=== PATIENT | male | born 1990 | race Caucasian/White ===

== ENCOUNTER 2022-09-14 15:38 | Emergency (ER) | payer MEDICAID ==
[~2022-09-14] VITALS: Ht 182.9 cm; Wt 83.0 kg
[2022-09-14] MEDS ORDERED: TRAZ-252 PO (15:48)
[2022-09-14] MEDS ORDERED: DIVA-85 PO (15:48)
[2022-09-14] MEDS ORDERED: BENZ0.5T49 PO (15:48)
[2022-09-14 17:28] VITALS: BP 137/61
[2022-09-14 17:47] LABS: COVID AG,FIA SOURCE NASAL SWAB
[2022-09-14 18:06] LABS: INFLUENZA TYPE B NEGATIVE FOR TYPE B (NEGATIVE)
[2022-09-14 18:27] LABS: INFLUENZA TYPE A POSITIVE FOR TYPE A (NEGATIVE)
[2022-09-14] MEDS ORDERED: ACETAMINOPHEN 500 MG TABLET PO ONE (18:45)
== END 2022-09-14 19:08 | disposition home or self-care (01) ==
LOC: EMS 15:45
DX: J10.1 Influenza due to other identified influenza virus with other respiratory manifestations (principal); F17.210 Nicotine dependence, cigarettes, uncomplicated; F31.9 Bipolar disorder, unspecified; I50.9 Heart failure, unspecified; F20.9 Schizophrenia, unspecified; C80.1 Malignant (primary) neoplasm, unspecified; F43.10 Post-traumatic stress disorder, unspecified; Z91.030 Bee allergy status; Z20.822 Contact with and (suspected) exposure to COVID-19
CPT/HCPCS: 87804; 99283

== ENCOUNTER 2022-09-24 11:00 | Inpatient (IN) | payer MEDICAID ==
[~2022-09-24] VITALS: Ht 182.9 cm; Wt 89.0 kg
[~2022-09-24 11:00] MED LIST: BENZ0.5T49 PO; DIVA-85 PO; TRAZ-252 PO
[2022-09-24] MEDS ORDERED: SERT-158 PO (12:09)
[2022-09-24] MEDS ORDERED: OLAN7.5T22 PO (12:09)
[2022-09-24] MEDS ORDERED: BENZ1TAB96 PO (12:09)
[2022-09-24] MEDS ORDERED: LEVE500T20 PO (12:09)
[2022-09-24 12:35] LABS: BASOPHILS % (AUTO) 0.2 % (0.0-2.0); HEMOGLOBIN 13.3 g/dL (13.5-17.5); LYMPHOCYTES # (AUTO) 2.1 K/uL (1.0-4.8); LYMPHOCYTES % (AUTO) 26.6 % (22.0-44.0); MEAN CORPUSCULAR HEMOGLOBIN 31.7 pg (26.0-34.0); MEAN CORPUSCULAR VOLUME 90 fL (80-100); MONOCYTES # (AUTO) 0.8 K/uL (0.1-1.0); MONOCYTES % (AUTO) 10.7 % (2.0-9.0); NEUTROPHILS # (AUTO) 4.9 K/uL (1.8-7.7); NEUTROPHILS % (AUTO) 61.5 % (40.0-70.0); PLATELET COUNT (AUTO) 391 K/uL (150-450); RED CELL DISTRIBUTION WIDTH 13.4 % (11.5-14.5)
[2022-09-24 12:52] LABS: ANION GAP 6 mmol/L (8-16); CALCIUM, TOTAL 8.9 mg/dL (8.8-10.5); CARBON DIOXIDE 29 mmol/L (22-29); CHLORIDE 101 mmol/L (98-107); CREATININE 0.71 mg/dL (0.60-1.30); GLUCOSE,RANDOM 95 mg/dL (70-110); POTASSIUM 3.5 mmol/L (3.5-5.1); SODIUM SERUM 136 mmol/L (136-145); UREA NITROGEN, BLOOD 14 mg/dL (7-18)
[2022-09-24 12:53] LABS: GLOMERULAR FILTR. RATE CALC > 60 mL/min (>60)
[2022-09-24 13:02] LABS: ACETAMINOPHEN < 2 mcg/mL (10-30); ALANINE AMINOTRANSFERASE 28 U/L (12-78); ALBUMIN 3.9 g/dL (3.4-5.0); ALKALINE PHOSPHATASE 82 U/L (46-116); ASPARTATE AMINOTRANSFERASE 26 U/L (15-37); BILIRUBIN,TOTAL 0.6 mg/dL (0.1-1.0)
[2022-09-24 14:38] LABS: SALICYLATE < 0.2 mg/dL (2.8-20.0)
[2022-09-24 14:45] LABS: VALPROIC ACID < 3 mcg/mL (50-100)
[2022-09-24] MEDS ORDERED: DIVA-80 PO (16:28)
[2022-09-24] MEDS ORDERED: TRAZ150T80 PO (16:28)
[2022-09-24] MEDS ORDERED: MAGNESIUM HYDROXIDE SUSPENSION 30 ML UDCUP PO PRN (16:30)
[2022-09-24] MEDS ORDERED: ONDANSETRON HCL 4 MG/2 ML VIAL IVP PRN (16:30)
[2022-09-24] MEDS ORDERED: LORazepam 2 MG/ML VIAL IVP PRN (16:30)
[2022-09-24] MEDS ORDERED: SODIUM CHLORIDE 0.9% 1,000 ML IV ONE (16:30)
[2022-09-24 16:40] LABS: COVID AG,FIA SOURCE NASAL SWAB
[2022-09-24 16:47] LABS: APPEARANCE,URINE CLEAR (CLEAR); BILIRUBIN,URINE NEGATIVE (NEGATIVE); GLUCOSE, URINE (UA) NEGATIVE (NEGATIVE); KETONES,URINE NEGATIVE (NEGATIVE); LEUKOCYTE ESTERASE ,URINE NEGATIVE (NEGATIVE); NITRATE,URINE NEGATIVE (NEGATIVE); OCCULT BLOOD,URINE NEGATIVE (NEGATIVE); PROTEIN,URINE NEGATIVE (NEGATIVE); SPECIFIC GRAVITIY, URINE 1.018 (1.003-1.030); UROBILINOGEN,URINE <=1.0 mg/dL (<=1.0)
[2022-09-24] MEDS: PANTOPRAZOLE SODIUM 40 MG DR TABLET PO SCH (17:16)
[2022-09-24 17:17] LABS: AMPHET/METH SCREEN,URINE POSITIVE (NEGATIVE); BARBITURATE SCREEN, URINE NEGATIVE (NEGATIVE); BENZODIAZEPINES SCREEN,URINE NEGATIVE (NEGATIVE); CANNABINOID SCREEN,URINE NEGATIVE (NEGATIVE); COCAINE SCREEN,URINE NEGATIVE (NEGATIVE); METHADONE SCREEN, URINE NEGATIVE (NEGATIVE); OPIATE SCREEN,URINE NEGATIVE (NEGATIVE)
[2022-09-24 17:21] LABS: PHENCYCLIDINE SCREEN,URINE NEGATIVE (NEGATIVE)
[2022-09-24 20:56] VITALS: BP 119/87
[2022-09-24] MEDS: ACETAMINOPHEN 325 MG TABLET PO PRN (21:11)
[2022-09-24 23:30] VITALS: BP 126/76
[2022-09-25] VITALS (7 sets, daily range): BP systolic 98–109; BP diastolic 58–65
[2022-09-25 07:47] LABS: ALANINE AMINOTRANSFERASE 23 U/L (12-78); ALBUMIN 3.2 g/dL (3.4-5.0); ALKALINE PHOSPHATASE 68 U/L (46-116); ANION GAP 4 mmol/L (8-16); ASPARTATE AMINOTRANSFERASE 17 U/L (15-37); BILIRUBIN,TOTAL 0.7 mg/dL (0.1-1.0); CALCIUM, TOTAL 8.5 mg/dL (8.8-10.5); CARBON DIOXIDE 29 mmol/L (22-29); CHLORIDE 105 mmol/L (98-107); CREATININE 0.79 mg/dL (0.60-1.30); GLUCOSE,RANDOM 71 mg/dL (70-110); POTASSIUM 3.9 mmol/L (3.5-5.1); SODIUM SERUM 138 mmol/L (136-145); TOTAL PROTEIN, SERUM 6.7 g/dL (6.4-8.2); UREA NITROGEN, BLOOD 6 mg/dL (7-18)
[2022-09-25 07:56] LABS: GLOMERULAR FILTR. RATE CALC > 60 mL/min (>60); VALPROIC ACID < 3 mcg/mL (50-100)
[2022-09-25] MEDS: PANTOPRAZOLE SODIUM 40 MG DR TABLET PO SCH (08:47)
[2022-09-26 04:07] VITALS: BP 108/62
[2022-09-26 04:49] VITALS: BP 105/61
[2022-09-26 08:10] VITALS: BP 112/65
[2022-09-26] MEDS: PANTOPRAZOLE SODIUM 40 MG DR TABLET PO SCH (08:58)
[2022-09-26 12:00] VITALS: BP 105/62
[2022-09-26 16:15] VITALS: BP 109/63
[2022-09-26 20:16] VITALS: BP 96/53
[2022-09-26] MEDS ORDERED: TAMSULOSIN HCL 0.4 MG CAPSULE PO SCH (21:00)
[2022-09-27] MEDS: ACETAMINOPHEN 325 MG TABLET PO PRN (05:33)
[2022-09-27 05:35] VITALS: BP 97/62
[2022-09-27] MEDS: PANTOPRAZOLE SODIUM 40 MG DR TABLET PO SCH (10:50)
[2022-09-27 12:34] LABS: COVID AG,FIA SOURCE NASAL SWAB
== END 2022-09-27 14:40 | DRG 817 ==
LOC: EMS 11:05 → 5N 18:42 → 5S 09-25 21:05 → 6N 09-26 23:03
PROVIDERS: ADMIT Internal Medicine; ATTEND Internal Medicine
DX: T43.212A Poisoning by selective serotonin and norepinephrine reuptake inhibitors, intentional self-harm, initial encounter (principal); R45.851 Suicidal ideations; I50.9 Heart failure, unspecified; F17.210 Nicotine dependence, cigarettes, uncomplicated; F20.9 Schizophrenia, unspecified; Z20.822 Contact with and (suspected) exposure to COVID-19; F31.9 Bipolar disorder, unspecified; F43.10 Post-traumatic stress disorder, unspecified; Z88.8 Allergy status to other drugs, medicaments and biological substances; Z91.030 Bee allergy status; Z85.028 Personal history of other malignant neoplasm of stomach; Y92.89 Other specified places as the place of occurrence of the external cause
CPT/HCPCS: 80053; 80164; 80307; 81003; 82140; 83735; 85025; 93005; 99285; G0378; G0480; G0481; J7030

== ENCOUNTER 2022-09-27 10:45 | Inpatient (IN) | payer MEDICAID ==
[~2022-09-27] VITALS: Ht 182.9 cm; Wt 85.5 kg
[~2022-09-27 10:45] MED LIST changes: -BENZ0.5T49 PO; +BENZ1TAB96 PO; -DIVA-85 PO; +DIVA500T53 PO; +LEVE500T20 PO; +OLAN7.5T22 PO; +SERT-158 PO; -TRAZ-252 PO; +TRAZ150T80 PO
[2022-09-27] MEDS: LORazepam 2 MG TABLET PO PRN (15:52)
[2022-09-27] MEDS ORDERED: NICOTINE 7 MG/24 HOUR PATCH TD PRN (17:15)
[2022-09-27] MEDS ORDERED: PNEUMOCOCCAL VACCINE POLYVALENT 0.5 ML VIAL [PPSV23] IM. ONE (17:30)
[2022-09-27] MEDS ORDERED: INFLUENZA VIRUS VACCINE QVS 2022-23 (6MO+)/PF 60 MCG/0.5 ML SYRINGE IM. ONE (17:30)
[2022-09-27] MEDS: LevETIRAcetam 500 MG TABLET PO SCH (18:00)
[2022-09-27 20:48] VITALS: BP 112/71
[2022-09-27] MEDS: ZOLPIDEM TARTRATE 10 MG TABLET PO PRN (20:55)
[2022-09-28] MEDS: QUEtiapine FUMARATE 100 MG TABLET PO PRN ×2 (04:26→16:02)
[2022-09-28] MEDS: LevETIRAcetam 500 MG TABLET PO SCH ×2 (08:18→16:59)
[2022-09-28 08:37] VITALS: BP 96/55
[2022-09-28] MEDS ORDERED: TAMSULOSIN HCL 0.4 MG CAPSULE PO SCH ×2 (09:00)
[2022-09-28] MEDS: SERTRALINE HCL 50 MG TABLET PO SCH (11:59)
[2022-09-28 12:00] VITALS: BP 112/69
[2022-09-28] MEDS: DIVALPROEX SODIUM 500 MG ER TABLET PO SCH (16:59)
[2022-09-28] MEDS ORDERED: CloNIDine HCL 0.1 MG TABLET PO PRN (19:30)
[2022-09-28] MEDS ORDERED: DOCUSATE SODIUM 100 MG CAPSULE PO PRN (19:30)
[2022-09-28] MEDS ORDERED: MAGNESIUM HYDROXIDE SUSPENSION 30 ML UDCUP PO PRN (19:30)
[2022-09-28] MEDS ORDERED: PETROLATUM,WHITE 28 GM JELLY TP PRN (19:30)
[2022-09-28] MEDS ORDERED: ALBUTEROL SULFATE HFA 90 MCG/PUFF 8 GM INHALER IH PRN (19:30)
[2022-09-28] MEDS ORDERED: GuaiFENesin/D-METHORPHAN [SUGAR-FREE] 200-20MG/10 ML SYRUP UDCUP PO PRN (19:30)
[2022-09-28] MEDS ORDERED: MAG HYDROX/AL HYDROX/SIMETH ES 30 ML SUSPENSION UDCUP PO PRN (19:30)
[2022-09-28] MEDS ORDERED: ONDANSETRON HCL 4 MG TABLET PO PRN (19:30)
[2022-09-28] MEDS ORDERED: LOPERAMIDE HCL 2 MG CAPSULE PO PRN (19:30)
[2022-09-28] MEDS: OLANZapine 7.5 MG TABLET PO SCH (20:06)
[2022-09-28] MEDS: TAMSULOSIN HCL 0.4 MG CAPSULE PO SCH (20:07)
[2022-09-28 20:19] VITALS: BP 111/73
[2022-09-28] MEDS: ZOLPIDEM TARTRATE 10 MG TABLET PO PRN (21:02)
[2022-09-29] MEDS: LevETIRAcetam 500 MG TABLET PO SCH ×2 (08:30→16:30)
[2022-09-29] MEDS: SERTRALINE HCL 50 MG TABLET PO SCH (08:30)
[2022-09-29] MEDS: DIVALPROEX SODIUM 500 MG ER TABLET PO SCH ×2 (08:30→16:31)
[2022-09-29 08:36] VITALS: BP 125/70
[2022-09-29 20:05] VITALS: BP 110/63
[2022-09-29] MEDS: TAMSULOSIN HCL 0.4 MG CAPSULE PO SCH (20:21)
[2022-09-29] MEDS: OLANZapine 7.5 MG TABLET PO SCH (20:21)
[2022-09-29] MEDS: ZOLPIDEM TARTRATE 10 MG TABLET PO PRN (20:28)
[2022-09-30 08:32] VITALS: BP 120/70
[2022-09-30] MEDS: SERTRALINE HCL 50 MG TABLET PO SCH (10:24)
[2022-09-30] MEDS: LevETIRAcetam 500 MG TABLET PO SCH ×2 (10:24→16:54)
[2022-09-30] MEDS: DIVALPROEX SODIUM 500 MG ER TABLET PO SCH ×2 (10:24→16:54)
[2022-09-30] MEDS: QUEtiapine FUMARATE 100 MG TABLET PO PRN (14:19)
[2022-09-30] MEDS: LORazepam 2 MG TABLET PO PRN (14:19)
[2022-09-30] MEDS: NICOTINE 14 MG/24 HOUR PATCH TD PRN (14:37)
[2022-09-30 18:18] VITALS: BP 119/77
[2022-09-30] MEDS: IBUPROFEN 400 MG TABLET PO PRN (18:21)
[2022-09-30 20:14] VITALS: BP 121/72
[2022-09-30] MEDS: TAMSULOSIN HCL 0.4 MG CAPSULE PO SCH (20:27)
[2022-09-30] MEDS: OLANZapine 7.5 MG TABLET PO SCH (20:28)
[2022-09-30] MEDS: ZOLPIDEM TARTRATE 10 MG TABLET PO PRN (20:52)
[2022-10-01 08:21] VITALS: BP 119/60
[2022-10-01] MEDS: DIVALPROEX SODIUM 500 MG ER TABLET PO SCH ×2 (08:26→17:16)
[2022-10-01] MEDS: LevETIRAcetam 500 MG TABLET PO SCH ×2 (08:26→17:16)
[2022-10-01] MEDS: SERTRALINE HCL 50 MG TABLET PO SCH (08:26)
[2022-10-01] MEDS: QUEtiapine FUMARATE 100 MG TABLET PO PRN ×2 (09:16→16:16)
[2022-10-01] MEDS: LORazepam 2 MG TABLET PO PRN ×2 (09:16→16:16)
[2022-10-01 11:07] LABS: HEPATITIS C AB (EIA) <0.1 s/co ratio (0.0-0.9)
[2022-10-01] MEDS: ACETAMINOPHEN 325 MG TABLET PO PRN (13:16)
[2022-10-01] MEDS: NICOTINE 14 MG/24 HOUR PATCH TD PRN (19:09)
[2022-10-01 20:17] VITALS: BP 117/68
[2022-10-01] MEDS: TAMSULOSIN HCL 0.4 MG CAPSULE PO SCH (20:40)
[2022-10-01] MEDS: OLANZapine 7.5 MG TABLET PO SCH (20:40)
[2022-10-01] MEDS: ZOLPIDEM TARTRATE 10 MG TABLET PO PRN (20:52)
[2022-10-02 00:52] VITALS: BP 105/74
[2022-10-02] MEDS: QUEtiapine FUMARATE 100 MG TABLET PO PRN ×3 (01:01→16:08)
[2022-10-02 08:23] VITALS: BP 110/61
[2022-10-02] MEDS: DIVALPROEX SODIUM 500 MG ER TABLET PO SCH ×2 (08:54→16:44)
[2022-10-02] MEDS: LevETIRAcetam 500 MG TABLET PO SCH ×2 (08:54→16:44)
[2022-10-02] MEDS: SERTRALINE HCL 50 MG TABLET PO SCH (08:54)
[2022-10-02] MEDS: ACETAMINOPHEN 325 MG TABLET PO PRN ×2 (09:42→17:51)
[2022-10-02] MEDS: LORazepam 2 MG TABLET PO PRN ×2 (09:47→16:08)
[2022-10-02 20:15] VITALS: BP 138/82
[2022-10-02] MEDS: OLANZapine 7.5 MG TABLET PO SCH (20:32)
[2022-10-02] MEDS: TAMSULOSIN HCL 0.4 MG CAPSULE PO SCH (20:32)
[2022-10-02] MEDS: ZOLPIDEM TARTRATE 10 MG TABLET PO PRN (20:55)
[2022-10-03] MEDS: LevETIRAcetam 500 MG TABLET PO SCH ×2 (08:19→16:31)
[2022-10-03] MEDS: SERTRALINE HCL 50 MG TABLET PO SCH (08:19)
[2022-10-03] MEDS: DIVALPROEX SODIUM 500 MG ER TABLET PO SCH ×2 (08:19→16:31)
[2022-10-03 08:21] VITALS: BP 110/69
[2022-10-03] MEDS: LORazepam 2 MG TABLET PO PRN ×2 (09:03→14:53)
[2022-10-03] MEDS: QUEtiapine FUMARATE 100 MG TABLET PO PRN ×3 (09:03→20:38)
[2022-10-03 20:11] VITALS: BP 135/74
[2022-10-03] MEDS: TAMSULOSIN HCL 0.4 MG CAPSULE PO SCH (20:35)
[2022-10-03] MEDS: OLANZapine 7.5 MG TABLET PO SCH (20:35)
[2022-10-03] MEDS: ZOLPIDEM TARTRATE 10 MG TABLET PO PRN (21:48)
[2022-10-04 01:29] VITALS: BP 112/72
[2022-10-04] MEDS: LORazepam 2 MG TABLET PO PRN ×3 (01:34→16:19)
[2022-10-04 07:11] LABS: APPEARANCE,URINE CLEAR (CLEAR); BILIRUBIN,URINE NEGATIVE (NEGATIVE); GLUCOSE, URINE (UA) NEGATIVE (NEGATIVE); KETONES,URINE NEGATIVE (NEGATIVE); LEUKOCYTE ESTERASE ,URINE NEGATIVE (NEGATIVE); NITRATE,URINE NEGATIVE (NEGATIVE); OCCULT BLOOD,URINE NEGATIVE (NEGATIVE); PROTEIN,URINE NEGATIVE (NEGATIVE); SPECIFIC GRAVITIY, URINE 1.007 (1.003-1.030); UROBILINOGEN,URINE <=1.0 mg/dL (<=1.0)
[2022-10-04 08:11] LABS: GLUCOMETER DEV NAME(LOC) POC.BV
[2022-10-04 08:13] VITALS: BP 110/61
[2022-10-04] MEDS: LevETIRAcetam 500 MG TABLET PO SCH ×2 (08:22→16:19)
[2022-10-04] MEDS: SERTRALINE HCL 50 MG TABLET PO SCH (08:22)
[2022-10-04] MEDS: DIVALPROEX SODIUM 500 MG ER TABLET PO SCH ×2 (08:22→16:19)
[2022-10-04] MEDS: QUEtiapine FUMARATE 100 MG TABLET PO PRN ×2 (10:59→16:19)
[2022-10-04] MEDS: IBUPROFEN 400 MG TABLET PO PRN (20:04)
[2022-10-04] MEDS: OLANZapine 7.5 MG TABLET PO SCH (20:04)
[2022-10-04] MEDS: TAMSULOSIN HCL 0.4 MG CAPSULE PO SCH (20:04)
[2022-10-04 20:13] VITALS: BP 121/60
[2022-10-04] MEDS: ZOLPIDEM TARTRATE 10 MG TABLET PO PRN (20:44)
[2022-10-05 00:39] VITALS: BP 112/73
[2022-10-05] MEDS: LORazepam 2 MG TABLET PO PRN ×3 (00:42→15:48)
[2022-10-05 08:16] VITALS: BP 106/66
[2022-10-05] MEDS: LevETIRAcetam 500 MG TABLET PO SCH ×2 (08:22→16:02)
[2022-10-05] MEDS: SERTRALINE HCL 50 MG TABLET PO SCH (08:22)
[2022-10-05] MEDS: DIVALPROEX SODIUM 500 MG ER TABLET PO SCH ×2 (08:22→16:02)
[2022-10-05] MEDS: QUEtiapine FUMARATE 100 MG TABLET PO PRN ×3 (10:21→22:49)
[2022-10-05 16:11] VITALS: BP 121/76
[2022-10-05] MEDS: IBUPROFEN 400 MG TABLET PO PRN (16:49)
[2022-10-05] MEDS: TAMSULOSIN HCL 0.4 MG CAPSULE PO SCH (20:13)
[2022-10-05] MEDS: OLANZapine 7.5 MG TABLET PO SCH (20:14)
[2022-10-05 20:39] VITALS: BP 116/71
[2022-10-05] MEDS: ZOLPIDEM TARTRATE 10 MG TABLET PO PRN (21:03)
[2022-10-06] MEDS: LORazepam 2 MG TABLET PO PRN ×2 (02:12→18:58)
[2022-10-06] MEDS: DIVALPROEX SODIUM 500 MG ER TABLET PO SCH ×2 (09:01→16:40)
[2022-10-06] MEDS: LevETIRAcetam 500 MG TABLET PO SCH ×2 (09:01→16:40)
[2022-10-06] MEDS: SERTRALINE HCL 50 MG TABLET PO SCH (09:01)
[2022-10-06 09:12] VITALS: BP 127/82
[2022-10-06] MEDS: IBUPROFEN 400 MG TABLET PO PRN (12:42)
[2022-10-06] MEDS: QUEtiapine FUMARATE 100 MG TABLET PO PRN (18:58)
[2022-10-06] MEDS: TAMSULOSIN HCL 0.4 MG CAPSULE PO SCH (20:19)
[2022-10-06] MEDS: OLANZapine 7.5 MG TABLET PO SCH (20:19)
[2022-10-06 20:27] VITALS: BP 127/81
[2022-10-06] MEDS: ZOLPIDEM TARTRATE 10 MG TABLET PO PRN (21:12)
[2022-10-07] MEDS: IBUPROFEN 400 MG TABLET PO PRN ×3 (01:34→23:26)
[2022-10-07] MEDS: DIVALPROEX SODIUM 500 MG ER TABLET PO SCH ×2 (08:34→16:25)
[2022-10-07] MEDS: LevETIRAcetam 500 MG TABLET PO SCH ×2 (08:34→16:25)
[2022-10-07] MEDS: SERTRALINE HCL 50 MG TABLET PO SCH (08:34)
[2022-10-07 09:00] VITALS: BP 106/67
[2022-10-07] MEDS ORDERED: SERTRALINE HCL 50 MG TABLET PO ONE (10:15)
[2022-10-07] MEDS: NICOTINE 14 MG/24 HOUR PATCH TD PRN (12:24)
[2022-10-07] MEDS: QUEtiapine FUMARATE 100 MG TABLET PO PRN ×2 (12:24→19:08)
[2022-10-07] MEDS: LORazepam 2 MG TABLET PO PRN (16:25)
[2022-10-07] MEDS: ACETAMINOPHEN 325 MG TABLET PO PRN (19:17)
[2022-10-07] MEDS: OLANZapine 7.5 MG TABLET PO SCH (20:15)
[2022-10-07 20:16] VITALS: BP 113/63
[2022-10-07] MEDS: TAMSULOSIN HCL 0.4 MG CAPSULE PO SCH (20:16)
[2022-10-07] MEDS: ZOLPIDEM TARTRATE 10 MG TABLET PO PRN (21:35)
[2022-10-07 23:21] VITALS: BP 129/79
[2022-10-08 00:08] VITALS: BP 110/68
[2022-10-08 04:32] VITALS: BP 115/79
[2022-10-08] MEDS: QUEtiapine FUMARATE 100 MG TABLET PO PRN ×4 (04:35→21:47)
[2022-10-08 08:35] VITALS: BP 116/66
[2022-10-08] MEDS: DIVALPROEX SODIUM 500 MG ER TABLET PO SCH ×2 (09:20→16:35)
[2022-10-08] MEDS: LevETIRAcetam 500 MG TABLET PO SCH ×2 (09:20→16:35)
[2022-10-08] MEDS: SERTRALINE HCL 50 MG TABLET PO SCH (09:20)
[2022-10-08] MEDS: LORazepam 2 MG TABLET PO PRN ×2 (11:08→19:32)
[2022-10-08] MEDS: ACETAMINOPHEN 325 MG TABLET PO PRN (16:24)
[2022-10-08 20:10] VITALS: BP 114/73
[2022-10-08] MEDS: OLANZapine 7.5 MG TABLET PO SCH (20:38)
[2022-10-08] MEDS: TAMSULOSIN HCL 0.4 MG CAPSULE PO SCH (20:39)
[2022-10-08 21:47] VITALS: BP 118/77
[2022-10-08] MEDS: IBUPROFEN 400 MG TABLET PO PRN (21:47)
[2022-10-08] MEDS: ZOLPIDEM TARTRATE 10 MG TABLET PO PRN (22:24)
[2022-10-09 00:12] VITALS: BP 147/94
[2022-10-09] MEDS: QUEtiapine FUMARATE 100 MG TABLET PO PRN ×3 (00:12→20:37)
[2022-10-09] MEDS: ACETAMINOPHEN 325 MG TABLET PO PRN ×2 (04:03→13:00)
[2022-10-09 08:30] VITALS: BP 114/59
[2022-10-09] MEDS: LevETIRAcetam 500 MG TABLET PO SCH ×2 (08:58→16:28)
[2022-10-09] MEDS: SERTRALINE HCL 50 MG TABLET PO SCH (08:59)
[2022-10-09] MEDS: DIVALPROEX SODIUM 500 MG ER TABLET PO SCH ×2 (08:59→16:28)
[2022-10-09 09:05] VITALS: BP 122/76
[2022-10-09 14:35] VITALS: BP 127/63
[2022-10-09] MEDS: LORazepam 2 MG TABLET PO PRN ×2 (14:36→20:02)
[2022-10-09 15:44] VITALS: BP 126/60
[2022-10-09] MEDS: IBUPROFEN 400 MG TABLET PO PRN (15:44)
[2022-10-09] MEDS: OLANZapine 7.5 MG TABLET PO SCH (20:02)
[2022-10-09] MEDS: TAMSULOSIN HCL 0.4 MG CAPSULE PO SCH (20:02)
[2022-10-09 20:15] VITALS: BP 126/80
[2022-10-09] MEDS: ZOLPIDEM TARTRATE 10 MG TABLET PO PRN (21:15)
[2022-10-10 02:00] VITALS: BP 124/78
[2022-10-10] MEDS: ACETAMINOPHEN 325 MG TABLET PO PRN ×2 (02:06→08:17)
[2022-10-10] MEDS: BENZOCAINE 10% 7 GM GEL TP PRN ×3 (02:59→18:35)
[2022-10-10] MEDS: LevETIRAcetam 500 MG TABLET PO SCH ×2 (08:16→16:32)
[2022-10-10] MEDS: DIVALPROEX SODIUM 500 MG ER TABLET PO SCH ×2 (08:16→16:32)
[2022-10-10] MEDS: QUEtiapine FUMARATE 100 MG TABLET PO PRN ×3 (08:17→21:04)
[2022-10-10] MEDS: SERTRALINE HCL 50 MG TABLET PO SCH (08:17)
[2022-10-10 08:31] VITALS: BP 121/78
[2022-10-10] MEDS: LORazepam 2 MG TABLET PO PRN (17:08)
[2022-10-10 18:35] VITALS: BP 125/89
[2022-10-10] MEDS: IBUPROFEN 400 MG TABLET PO PRN (18:35)
[2022-10-10] MEDS: OLANZapine 7.5 MG TABLET PO SCH (20:10)
[2022-10-10] MEDS: TAMSULOSIN HCL 0.4 MG CAPSULE PO SCH (20:10)
[2022-10-10] MEDS: ZOLPIDEM TARTRATE 10 MG TABLET PO PRN (21:00)
[2022-10-10] MEDS: NICOTINE 14 MG/24 HOUR PATCH TD PRN (21:05)
[2022-10-10 21:45] VITALS: BP 133/78
[2022-10-11] MEDS: QUEtiapine FUMARATE 100 MG TABLET PO PRN ×3 (03:58→20:14)
[2022-10-11] MEDS: LORazepam 2 MG TABLET PO PRN (05:37)
[2022-10-11] MEDS: IBUPROFEN 400 MG TABLET PO PRN ×2 (06:14→17:43)
[2022-10-11 06:32] LABS: GLUCOMETER DEV NAME(LOC) POC.BV
[2022-10-11 08:16] VITALS: BP 105/62
[2022-10-11] MEDS: DIVALPROEX SODIUM 500 MG ER TABLET PO SCH ×2 (08:56→16:37)
[2022-10-11] MEDS: SERTRALINE HCL 50 MG TABLET PO SCH (08:56)
[2022-10-11] MEDS: LevETIRAcetam 500 MG TABLET PO SCH ×2 (08:56→16:37)
[2022-10-11] MEDS ORDERED: LORazepam 2 MG TABLET PO PRN (09:45)
[2022-10-11 17:18] VITALS: BP 106/67
[2022-10-11] MEDS: NICOTINE 14 MG/24 HOUR PATCH TD PRN (18:24)
[2022-10-11 20:02] VITALS: BP 110/68
[2022-10-11] MEDS: TAMSULOSIN HCL 0.4 MG CAPSULE PO SCH (20:14)
[2022-10-11] MEDS: OLANZapine 7.5 MG TABLET PO SCH (20:14)
[2022-10-11] MEDS: TraZODone HCL 50 MG TABLET PO PRN (21:11)
[2022-10-11] MEDS: MELATONIN 3 MG TABLET PO PRN (21:11)
[2022-10-12 08:20] VITALS: BP 133/62
[2022-10-12] MEDS: LevETIRAcetam 500 MG TABLET PO SCH ×2 (09:16→16:31)
[2022-10-12] MEDS: SERTRALINE HCL 50 MG TABLET PO SCH (09:16)
[2022-10-12] MEDS: DIVALPROEX SODIUM 500 MG ER TABLET PO SCH ×2 (09:16→16:31)
[2022-10-12] MEDS: IBUPROFEN 400 MG TABLET PO PRN ×2 (12:19→20:20)
[2022-10-12] MEDS: QUEtiapine FUMARATE 100 MG TABLET PO PRN ×2 (12:20→18:35)
[2022-10-12 16:13] VITALS: BP 100/60
[2022-10-12] MEDS: LORazepam 2 MG TABLET PO PRN (16:19)
[2022-10-12] MEDS: AMOX TR/POT CLAV 500 MG/125 MG TABLET PO SCH (16:40)
[2022-10-12] MEDS: OLANZapine 7.5 MG TABLET PO SCH (20:19)
[2022-10-12 20:20] VITALS: BP 112/62
[2022-10-12] MEDS: TraZODone HCL 50 MG TABLET PO PRN (20:20)
[2022-10-12] MEDS: TAMSULOSIN HCL 0.4 MG CAPSULE PO SCH (20:21)
[2022-10-12] MEDS: MELATONIN 3 MG TABLET PO PRN (20:21)
[2022-10-13] MEDS: QUEtiapine FUMARATE 100 MG TABLET PO PRN ×3 (03:09→18:46)
[2022-10-13] MEDS: BENZOCAINE 10% 7 GM GEL TP PRN ×2 (03:14→15:59)
[2022-10-13] MEDS: AMOX TR/POT CLAV 500 MG/125 MG TABLET PO SCH ×3 (09:15→16:54)
[2022-10-13] MEDS: DIVALPROEX SODIUM 500 MG ER TABLET PO SCH ×2 (09:15→16:54)
[2022-10-13] MEDS: LevETIRAcetam 500 MG TABLET PO SCH ×2 (09:15→16:54)
[2022-10-13] MEDS: SERTRALINE HCL 50 MG TABLET PO SCH (09:16)
[2022-10-13 09:51] VITALS: BP 110/54
[2022-10-13] MEDS: IBUPROFEN 400 MG TABLET PO PRN (12:40)
[2022-10-13] MEDS: LORazepam 2 MG TABLET PO PRN (14:46)
[2022-10-13] MEDS: ACETAMINOPHEN 325 MG TABLET PO PRN (19:37)
[2022-10-13] MEDS: TraZODone HCL 50 MG TABLET PO PRN (20:29)
[2022-10-13] MEDS: OLANZapine 7.5 MG TABLET PO SCH (20:29)
[2022-10-13] MEDS: TAMSULOSIN HCL 0.4 MG CAPSULE PO SCH (20:29)
[2022-10-13 20:30] VITALS: BP 111/69
[2022-10-14 00:53] VITALS: BP 104/69
[2022-10-14] MEDS: IBUPROFEN 400 MG TABLET PO PRN (00:57)
[2022-10-14 08:19] VITALS: BP 106/60
[2022-10-14] MEDS: SERTRALINE HCL 50 MG TABLET PO SCH (08:45)
[2022-10-14] MEDS: LevETIRAcetam 500 MG TABLET PO SCH ×2 (08:45→16:32)
[2022-10-14] MEDS: DIVALPROEX SODIUM 500 MG ER TABLET PO SCH ×2 (08:45→16:32)
[2022-10-14] MEDS: AMOX TR/POT CLAV 500 MG/125 MG TABLET PO SCH ×3 (08:45→16:32)
[2022-10-14] MEDS: ACETAMINOPHEN 325 MG TABLET PO PRN (12:11)
[2022-10-14] MEDS: QUEtiapine FUMARATE 200 MG TABLET PO SCH ×2 (12:14→20:03)
[2022-10-14] MEDS: BENZOCAINE 10% 7 GM GEL TP PRN ×2 (14:24→21:27)
[2022-10-14] MEDS: LORazepam 2 MG TABLET PO PRN (15:10)
[2022-10-14] MEDS: TraZODone HCL 50 MG TABLET PO PRN (20:03)
[2022-10-14] MEDS: TAMSULOSIN HCL 0.4 MG CAPSULE PO SCH (20:03)
[2022-10-14 20:44] VITALS: BP 106/62
[2022-10-14] MEDS: OLANZapine 5 MG RAPDIS TABLET PO PRN (21:41)
[2022-10-14] MEDS: MELATONIN 3 MG TABLET PO PRN (21:41)
[2022-10-15 08:30] VITALS: BP 112/62
[2022-10-15] MEDS: AMOX TR/POT CLAV 500 MG/125 MG TABLET PO SCH ×3 (09:18→16:50)
[2022-10-15] MEDS: DIVALPROEX SODIUM 500 MG ER TABLET PO SCH ×2 (09:18→16:50)
[2022-10-15] MEDS: QUEtiapine FUMARATE 200 MG TABLET PO SCH ×2 (09:19→20:09)
[2022-10-15] MEDS: SERTRALINE HCL 50 MG TABLET PO SCH (09:19)
[2022-10-15] MEDS: LevETIRAcetam 500 MG TABLET PO SCH ×2 (09:19→16:51)
[2022-10-15 16:20] VITALS: BP 114/68
[2022-10-15] MEDS: LORazepam 2 MG TABLET PO PRN (16:25)
[2022-10-15] MEDS: TAMSULOSIN HCL 0.4 MG CAPSULE PO SCH (20:09)
[2022-10-15] MEDS: TraZODone HCL 50 MG TABLET PO PRN (20:19)
[2022-10-15] MEDS: MELATONIN 3 MG TABLET PO PRN (20:20)
[2022-10-15 20:48] VITALS: BP 124/78
[2022-10-16 08:17] VITALS: BP 101/57
[2022-10-16] MEDS: QUEtiapine FUMARATE 200 MG TABLET PO SCH ×2 (09:58→21:11)
[2022-10-16] MEDS: LevETIRAcetam 500 MG TABLET PO SCH ×2 (09:58→17:13)
[2022-10-16] MEDS: DIVALPROEX SODIUM 500 MG ER TABLET PO SCH ×2 (09:58→17:13)
[2022-10-16] MEDS: AMOX TR/POT CLAV 500 MG/125 MG TABLET PO SCH ×3 (09:58→17:13)
[2022-10-16] MEDS: SERTRALINE HCL 50 MG TABLET PO SCH (09:59)
[2022-10-16] MEDS: LORazepam 2 MG TABLET PO PRN (14:56)
[2022-10-16] MEDS: OLANZapine 5 MG RAPDIS TABLET PO PRN (15:28)
[2022-10-16] MEDS: NICOTINE 14 MG/24 HOUR PATCH TD PRN (15:36)
[2022-10-16 20:24] VITALS: BP 121/84
[2022-10-16] MEDS: TAMSULOSIN HCL 0.4 MG CAPSULE PO SCH (21:11)
[2022-10-16] MEDS: TraZODone HCL 50 MG TABLET PO PRN (21:11)
[2022-10-16] MEDS: MELATONIN 3 MG TABLET PO PRN (21:33)
[2022-10-17] MEDS: LORazepam 2 MG TABLET PO PRN (05:05)
[2022-10-17 08:39] VITALS: BP 106/66
[2022-10-17] MEDS: QUEtiapine FUMARATE 200 MG TABLET PO SCH (08:59)
[2022-10-17] MEDS: DIVALPROEX SODIUM 500 MG ER TABLET PO SCH ×2 (08:59→17:07)
[2022-10-17] MEDS: SERTRALINE HCL 50 MG TABLET PO SCH (08:59)
[2022-10-17] MEDS: LevETIRAcetam 500 MG TABLET PO SCH ×2 (08:59→17:07)
[2022-10-17] MEDS: AMOX TR/POT CLAV 500 MG/125 MG TABLET PO SCH ×2 (08:59→12:40)
[2022-10-17 20:21] VITALS: BP 140/87
[2022-10-17] MEDS: QUEtiapine FUMARATE 300 MG TABLET PO SCH (20:37)
[2022-10-17] MEDS: TAMSULOSIN HCL 0.4 MG CAPSULE PO SCH (20:37)
[2022-10-17] MEDS: TraZODone HCL 50 MG TABLET PO PRN (20:41)
[2022-10-18 08:26] LABS: GLUCOMETER DEV NAME(LOC) POC.BV
[2022-10-18] MEDS: LevETIRAcetam 500 MG TABLET PO SCH ×2 (09:32→16:37)
[2022-10-18] MEDS: QUEtiapine FUMARATE 300 MG TABLET PO SCH ×2 (09:32→20:11)
[2022-10-18] MEDS: DIVALPROEX SODIUM 500 MG ER TABLET PO SCH ×2 (09:32→16:37)
[2022-10-18] MEDS: SERTRALINE HCL 50 MG TABLET PO SCH (09:32)
[2022-10-18 09:47] VITALS: BP 133/82
[2022-10-18] MEDS: NICOTINE 14 MG/24 HOUR PATCH TD PRN (18:18)
[2022-10-18 20:11] VITALS: BP 111/77
[2022-10-18] MEDS: TAMSULOSIN HCL 0.4 MG CAPSULE PO SCH (20:11)
[2022-10-18] MEDS: TraZODone HCL 50 MG TABLET PO PRN (20:14)
[2022-10-18] MEDS: MELATONIN 3 MG TABLET PO PRN (20:54)
[2022-10-19] MEDS: DIVALPROEX SODIUM 500 MG ER TABLET PO SCH ×2 (08:34→17:33)
[2022-10-19] MEDS: LevETIRAcetam 500 MG TABLET PO SCH ×2 (08:34→17:33)
[2022-10-19] MEDS: SERTRALINE HCL 50 MG TABLET PO SCH (08:34)
[2022-10-19] MEDS: QUEtiapine FUMARATE 300 MG TABLET PO SCH ×2 (08:34→21:28)
[2022-10-19 08:59] VITALS: BP 135/90
[2022-10-19] MEDS: NICOTINE 14 MG/24 HOUR PATCH TD PRN (19:12)
[2022-10-19 21:10] VITALS: BP 130/84
[2022-10-19] MEDS: TAMSULOSIN HCL 0.4 MG CAPSULE PO SCH (21:28)
[2022-10-19] MEDS: TraZODone HCL 50 MG TABLET PO PRN (21:37)
[2022-10-20] MEDS: QUEtiapine FUMARATE 300 MG TABLET PO SCH ×2 (09:02→20:28)
[2022-10-20] MEDS: LevETIRAcetam 500 MG TABLET PO SCH ×2 (09:02→17:27)
[2022-10-20] MEDS: DIVALPROEX SODIUM 500 MG ER TABLET PO SCH ×2 (09:02→17:27)
[2022-10-20] MEDS: SERTRALINE HCL 50 MG TABLET PO SCH (09:06)
[2022-10-20 11:06] VITALS: BP 128/80
[2022-10-20] MEDS: TraZODone HCL 50 MG TABLET PO PRN (20:28)
[2022-10-20] MEDS: TAMSULOSIN HCL 0.4 MG CAPSULE PO SCH (20:28)
[2022-10-20 20:32] VITALS: BP 101/86
[2022-10-20] MEDS: NICOTINE 14 MG/24 HOUR PATCH TD PRN (22:38)
[2022-10-21 08:29] VITALS: BP 113/72
[2022-10-21] MEDS: QUEtiapine FUMARATE 300 MG TABLET PO SCH (08:47)
[2022-10-21] MEDS: DIVALPROEX SODIUM 500 MG ER TABLET PO SCH ×2 (08:47→16:14)
[2022-10-21] MEDS: SERTRALINE HCL 50 MG TABLET PO SCH (08:47)
[2022-10-21] MEDS: LevETIRAcetam 500 MG TABLET PO SCH ×2 (08:47→16:14)
[2022-10-21] MEDS: ATOMOXETINE HCL 18 MG CAPSULE PO SCH (13:40)
[2022-10-21] MEDS ORDERED: FLUTICASONE PROPIONATE 50 MCG/SPRAY 16 GM NASAL SPRAY NASAL PRN (18:00)
[2022-10-21] MEDS: QUEtiapine FUMARATE 200 MG TABLET PO SCH (20:03)
[2022-10-21] MEDS: TAMSULOSIN HCL 0.4 MG CAPSULE PO SCH (20:03)
[2022-10-21] MEDS: TraZODone HCL 50 MG TABLET PO PRN (20:07)
[2022-10-21 20:40] VITALS: BP 122/80
[2022-10-21] MEDS: OLANZapine 5 MG RAPDIS TABLET PO PRN (22:30)
[2022-10-22] MEDS: DIVALPROEX SODIUM 500 MG ER TABLET PO SCH ×2 (08:41→16:05)
[2022-10-22] MEDS: LevETIRAcetam 500 MG TABLET PO SCH ×2 (08:41→16:05)
[2022-10-22] MEDS: QUEtiapine FUMARATE 200 MG TABLET PO SCH ×2 (08:41→20:29)
[2022-10-22] MEDS: SERTRALINE HCL 50 MG TABLET PO SCH (08:41)
[2022-10-22] MEDS: ATOMOXETINE HCL 18 MG CAPSULE PO SCH (08:41)
[2022-10-22 08:45] VITALS: BP 125/69
[2022-10-22 20:14] VITALS: BP 119/76
[2022-10-22] MEDS: TAMSULOSIN HCL 0.4 MG CAPSULE PO SCH (20:28)
[2022-10-22] MEDS: TraZODone HCL 50 MG TABLET PO PRN (20:28)
[2022-10-22] MEDS: OLANZapine 5 MG RAPDIS TABLET PO PRN (22:11)
[2022-10-23 08:47] VITALS: BP 109/68
[2022-10-23] MEDS: QUEtiapine FUMARATE 200 MG TABLET PO SCH (09:08)
[2022-10-23] MEDS: ATOMOXETINE HCL 18 MG CAPSULE PO SCH (09:08)
[2022-10-23] MEDS: DIVALPROEX SODIUM 500 MG ER TABLET PO SCH ×2 (09:08→16:21)
[2022-10-23] MEDS: SERTRALINE HCL 50 MG TABLET PO SCH (09:08)
[2022-10-23] MEDS: LevETIRAcetam 500 MG TABLET PO SCH ×2 (09:08→16:21)
[2022-10-23] MEDS ORDERED: SERT-162 PO (12:40)
[2022-10-23] MEDS ORDERED: ATOM18CA7 PO (12:42)
[2022-10-23] MEDS ORDERED: TAMS-13 PO (12:42)
[2022-10-23] MEDS ORDERED: QUET200T PO (12:44)
[2022-10-23] MEDS: NICOTINE 14 MG/24 HOUR PATCH TD PRN (14:05)
[2022-10-24] MEDS ORDERED: QUET200T30 PO (05:40)
[2022-10-24] MEDS ORDERED: SERT-439 PO (05:40)
[2022-10-24] MEDS ORDERED: ATOM18CA7 PO (05:40)
[2022-10-24] MEDS ORDERED: LEVE500T8 PO (05:40)
[2022-10-24] MEDS ORDERED: DIVA-112 PO (05:40)
[2022-10-24] MEDS ORDERED: TAMS-13 PO (05:40)
== END 2022-10-23 16:20 | disposition home or self-care (01) | DRG 750 ==
LOC: B2S 15:33
PROVIDERS: ADMIT Psychiatry & Neurology Psychiatry; ATTEND Psychiatry & Neurology Psychiatry
DX: F25.0 Schizoaffective disorder, bipolar type (principal); G40.909 Epilepsy, unspecified, not intractable, without status epilepticus; I50.9 Heart failure, unspecified; F15.10 Other stimulant abuse, uncomplicated; F41.9 Anxiety disorder, unspecified; R33.9 Retention of urine, unspecified; T43.222A Poisoning by selective serotonin reuptake inhibitors, intentional self-harm, initial encounter; Z20.822 Contact with and (suspected) exposure to COVID-19; F90.9 Attention-deficit hyperactivity disorder, unspecified type; G47.00 Insomnia, unspecified; T43.592A Poisoning by other antipsychotics and neuroleptics, intentional self-harm, initial encounter; Y92.89 Other specified places as the place of occurrence of the external cause; Z59.00 Homelessness unspecified; Z76.5 Malingerer [conscious simulation]; Z79.899 Other long term (current) drug therapy; Z85.028 Personal history of other malignant neoplasm of stomach; Z23 Encounter for immunization; Z91.030 Bee allergy status; Z88.8 Allergy status to other drugs, medicaments and biological substances
CPT/HCPCS: 80164; 81003; 83036; 86803; 87081; 90686

== ENCOUNTER 2025-05-02 12:09 | Inpatient (IN) | payer MEDICAID ==
[~2025-05-02] VITALS: Ht 185.4 cm; Wt 113.4 kg
[~2025-05-02 12:09] MED LIST changes: +ATOM18CA7 PO; -BENZ1TAB96 PO; +DIVA-112 PO; +DIVA-153 PO; -DIVA500T53 PO; +LEVE-71 PO; -LEVE500T20 PO; +LEVE500T8 PO; -OLAN7.5T22 PO; +QUET200T PO; +QUET200T30 PO; -SERT-158 PO; +SERT-162 PO; +SERT-439 PO; +TAMS0.4C94 PO; -TRAZ150T80 PO
[2025-05-02 12:35] LABS: COVID AG,FIA SOURCE NASAL SWAB
[2025-05-02 12:45] LABS: PLATELET COUNT (AUTO) 391 K/uL (150-450); RED BLOOD CELL COUNT(AUTO) 4.60 MIL/uL (4.50-5.90); RED CELL DISTRIBUTION WIDTH 13.1 % (11.5-14.5); WHITE BLOOD COUNT (AUTO) 11.8 K/uL (4.5-11.0)
[2025-05-02 12:54] LABS: SARS-COV2 (COVID) ANTIGEN,FIA Negative (Negative)
[2025-05-02 12:56] LABS: CALCIUM, TOTAL 8.2 mg/dL (8.8-10.5); CREATININE 1.11 mg/dL (0.60-1.30); GLOMERULAR FILTR. RATE CALC > 60 mL/min (>60); GLUCOSE,RANDOM 144 mg/dL (70-110); SODIUM SERUM 133 mmol/L (136-145); UREA NITROGEN, BLOOD 18 mg/dL (7-18)
[2025-05-02] MEDS: POTASSIUM CHLORIDE 20 MEQ ER TABLET PO ONE (13:12)
[2025-05-02] MEDS ORDERED: LOPERAMIDE HCL 2 MG CAPSULE PO PRN (14:30)
[2025-05-02] MEDS ORDERED: GuaiFENesin/D-METHORPHAN [SUGAR-FREE] 200-20MG/10 ML SYRUP UDCUP PO PRN (14:30)
[2025-05-02] MEDS ORDERED: OLANZapine 5 MG RAPDIS TABLET PO PRN (14:30)
[2025-05-02] MEDS: GABAPENTIN 300 MG CAPSULE PO SCH (16:00)
[2025-05-02 16:15] VITALS: O2SAT 96
[2025-05-02] MEDS: THIAMINE 100 MG TABLET PO SCH (18:16)
[2025-05-02 20:12] VITALS: BP 122/75; PULSE 65; RESP 20; TEMP 98.1; O2SAT 100
[2025-05-02] MEDS: DIVALPROEX SODIUM 500 MG ER TABLET PO SCH (21:00)
[2025-05-02] MEDS: OLANZapine 5 MG RAPDIS TABLET PO SCH (21:12)
[2025-05-02] MEDS: ZOLPIDEM TARTRATE 10 MG TABLET PO PRN (21:26)
[2025-05-03 08:23] VITALS: BP 111/60; PULSE 82; RESP 18; TEMP 98.5; O2SAT 97
[2025-05-03 08:54] LABS: PLATELET COUNT (AUTO) 342 K/uL (150-450); RED BLOOD CELL COUNT(AUTO) 4.55 MIL/uL (4.50-5.90); RED CELL DISTRIBUTION WIDTH 13.5 % (11.5-14.5); WHITE BLOOD COUNT (AUTO) 7.3 K/uL (4.5-11.0)
[2025-05-03 09:09] LABS: CALCIUM, TOTAL 7.9 mg/dL (8.8-10.5); CREATININE 0.70 mg/dL (0.60-1.30); GLOMERULAR FILTR. RATE CALC > 60 mL/min (>60); GLUCOSE,RANDOM 107 mg/dL (70-110); SODIUM SERUM 138 mmol/L (136-145); UREA NITROGEN, BLOOD 12 mg/dL (7-18)
[2025-05-03 09:20] LABS: CHOL/HDL RATIO 4.3 (4.2-7.3); LDL CHOL (CALC.) 78.0 mg/dL (0-130)
[2025-05-03] MEDS: SERTRALINE HCL 50 MG TABLET PO SCH (09:21)
[2025-05-03] MEDS: MULTIVITAMINS WITH MINERALS, THERAPEUTIC TABLET PO SCH (09:22)
[2025-05-03] MEDS: FOLIC ACID 1 MG TABLET PO SCH (09:22)
[2025-05-03] MEDS: NALTREXONE HCL 50 MG TABLET PO SCH (09:30)
[2025-05-03] MEDS: PALIPERIDONE PALMITATE 234 MG/1.5 ML SYRINGE IM ONE (20:04)
[2025-05-03 20:12] VITALS: BP 138/93; PULSE 71; RESP 18; TEMP 97.7; O2SAT 98
[2025-05-03] MEDS: TAMSULOSIN HCL 0.4 MG CAPSULE PO SCH (20:37)
[2025-05-03] MEDS: VALPROIC ACID 250 MG/5 ML SOLUTION UDCUP PO SCH (20:38)
[2025-05-04 08:35] VITALS: BP 117/61; PULSE 79; RESP 18; TEMP 97.5; O2SAT 97
[2025-05-04] MEDS: ATOMOXETINE HCL 25 MG CAPSULE PO SCH (09:03)
[2025-05-04 11:02] VITALS: RESP 19
[2025-05-04] MEDS: ACETAMINOPHEN 325 MG TABLET PO PRN (11:02)
[2025-05-04 12:02] VITALS: RESP 16
[2025-05-04] MEDS: BACITRACIN 28 GM OINTMENT TP SCH (17:34)
[2025-05-04 20:37] VITALS: BP 101/65; PULSE 60; RESP 18; TEMP 98.8; O2SAT 96
[2025-05-05 08:36] VITALS: BP 124/81; PULSE 78; RESP 18; TEMP 97.5; O2SAT 98
[2025-05-05] MEDS: ATOMOXETINE HCL 40 MG CAPSULE PO SCH (10:09)
[2025-05-05] MEDS: SERTRALINE HCL 50 MG TABLET PO SCH (10:11)
[2025-05-05] MEDS: NICOTINE 21 MG/24 HOUR PATCH TD SCH (12:21)
[2025-05-05 20:41] VITALS: BP 129/75; PULSE 72; RESP 18; TEMP 97.8; O2SAT 98
[2025-05-06 08:44] VITALS: BP 123/83; PULSE 74; RESP 18; TEMP 97.5; O2SAT 100
[2025-05-06] MEDS: ATOMOXETINE HCL 60 MG CAPSULE PO SCH (09:28)
[2025-05-06] MEDS: SERTRALINE HCL 100 MG TABLET PO SCH (09:29)
[2025-05-06] MEDS: PALIPERIDONE PALMITATE 156 MG/ML SYRINGE IM ONE (09:36)
[2025-05-06] MEDS: PROMETHAZINE HCL 25 MG TABLET PO PRN (11:10)
[2025-05-06] MEDS: ONDANSETRON 4 MG TABLET PO PRN (13:05)
[2025-05-06 13:38] VITALS: BP 136/84; PULSE 95; RESP 18; TEMP 97.6; O2SAT 100
[2025-05-06 20:29] VITALS: BP 125/84; PULSE 78; RESP 18; TEMP 97.8; O2SAT 98
[2025-05-07 08:06] VITALS: BP 114/71; PULSE 72; RESP 16; TEMP 98.1; O2SAT 99
[2025-05-07] MEDS ORDERED: ALBUTEROL SULFATE HFA 90 MCG/PUFF 8 GM INHALER IH PRN (13:00)
[2025-05-07] MEDS ORDERED: MOMETASONE FUROATE 50 MCG/SPRAY 17 GM NASAL SPRAY NASAL PRN (13:00)
[2025-05-07 20:46] VITALS: BP 117/81; PULSE 76; RESP 18; TEMP 98.1; O2SAT 98
[2025-05-07 22:21] LABS: GLUCOMETER DEV NAME(LOC) BV2S.; GLUCOSE,POINT OF CARE 186 MG/DL (70-110)
[2025-05-08 08:52] VITALS: BP 139/74; PULSE 81; RESP 18; TEMP 97.5; O2SAT 96
[2025-05-08 20:21] VITALS: BP 128/95; PULSE 87; RESP 17; TEMP 98.4; O2SAT 97
[2025-05-09 08:34] VITALS: BP 113/61; PULSE 69; RESP 17; TEMP 97.4; O2SAT 98
[2025-05-09 20:12] VITALS: BP 124/91; PULSE 90; RESP 18; TEMP 98.1; O2SAT 98
[2025-05-10] MEDS: ATOMOXETINE HCL 40 MG CAPSULE PO SCH (09:00)
[2025-05-10] MEDS: SERTRALINE HCL 100 MG TABLET PO SCH (09:00)
[2025-05-10 09:01] VITALS: BP 107/64; PULSE 79; RESP 16; TEMP 98.8; O2SAT 96
[2025-05-10 11:24] VITALS: RESP 17; O2SAT 96
[2025-05-10 12:24] VITALS: RESP 16
[2025-05-10 20:41] VITALS: BP 117/72; PULSE 79; RESP 17; TEMP 98.7; O2SAT 97
[2025-05-11 08:42] VITALS: BP 105/72; PULSE 80; RESP 18; TEMP 97.7; O2SAT 98
[2025-05-11] MEDS: ATOMOXETINE HCL 25 MG CAPSULE PO SCH (09:31)
[2025-05-11] MEDS: TUBERCULIN, PURIFIED PROTEIN DERIVATIVE 5 TU/0.1 ML SYRINGE ID ONE (10:41)
[2025-05-11 11:31] LABS: GLUCOMETER DEV NAME(LOC) BV2S.; GLUCOSE,POINT OF CARE 86 MG/DL (70-110)
[2025-05-11] MEDS: MAGNESIUM HYDROXIDE SUSPENSION 30 ML UDCUP PO PRN (17:35)
[2025-05-11 17:52] VITALS: RESP 18
[2025-05-11 18:52] VITALS: RESP 18
[2025-05-11] MEDS ORDERED: POLYETHYLENE GLYCOL 3350 17 GM PACKET PO PRN (19:30)
[2025-05-11 20:55] VITALS: BP 127/88; PULSE 85; RESP 18; TEMP 98.4; O2SAT 96
[2025-05-12 08:41] VITALS: BP 117/75; PULSE 78; RESP 16; TEMP 98.8; O2SAT 96
[2025-05-12] MEDS: SERTRALINE HCL 100 MG TABLET PO SCH (08:59)
[2025-05-12] MEDS: DOCUSATE SODIUM 250 MG CAPSULE PO SCH (09:01)
[2025-05-12 20:14] VITALS: BP 133/80; PULSE 78; RESP 18; TEMP 98.6; O2SAT 96
[2025-05-12] MEDS ORDERED: BUSP10TA23 PO (23:03)
[2025-05-12] MEDS ORDERED: QUET100T34 PO (23:03)
[2025-05-12] MEDS ORDERED: VALP250S23 PO (23:03)
[2025-05-12] MEDS ORDERED: ATOM25CA8 PO (23:03)
[2025-05-12] MEDS ORDERED: NALT50TA33 PO (23:03)
[2025-05-12] MEDS ORDERED: SERT-440 PO (23:03)
[2025-05-12] MEDS ORDERED: LEVE-71 PO (23:03)
[2025-05-12] MEDS ORDERED: MELA5TAB40 PO (23:03)
[2025-05-13 08:44] VITALS: BP 132/80; PULSE 67; RESP 18; TEMP 97; O2SAT 98
[2025-05-13 20:21] VITALS: BP 124/85; PULSE 71; RESP 18; TEMP 97.7; O2SAT 95
[2025-05-14 08:25] VITALS: BP 120/100; PULSE 95; RESP 18; TEMP 98.3; O2SAT 99
[2025-05-14] MEDS: NICOTINE POLACRILEX 2 MG LOZENGE PO PRN (18:49)
[2025-05-14 20:34] VITALS: BP 112/79; PULSE 70; RESP 18; TEMP 97.8; O2SAT 98
[2025-05-14] MEDS: MIRTAZAPINE 30 MG TABLET PO SCH (22:06)
[2025-05-15 08:17] VITALS: BP 120/86; PULSE 79; RESP 18; TEMP 99; O2SAT 96
[2025-05-15] MEDS: CYCLOBENZAPRINE HCL 10 MG TABLET PO SCH (09:01)
[2025-05-15 20:16] VITALS: BP 122/88; PULSE 89; RESP 18; TEMP 98; O2SAT 96
[2025-05-16 08:41] VITALS: BP 111/66; PULSE 69; RESP 18; TEMP 98.4; O2SAT 97
[2025-05-16 20:22] VITALS: BP 130/85; PULSE 70; RESP 18; TEMP 97.7; O2SAT 98
[2025-05-16] MEDS: MELATONIN 5 MG TABLET PO PRN (21:38)
[2025-05-17 08:21] VITALS: BP 116/74; PULSE 68; RESP 17; TEMP 97.5; O2SAT 98
[2025-05-17 20:13] VITALS: PULSE 79; RESP 18; TEMP 98; O2SAT 98
[2025-05-18 08:41] VITALS: BP 110/73; PULSE 74; RESP 18; TEMP 98.4; O2SAT 98
[2025-05-18 20:14] VITALS: BP 127/87; PULSE 89; RESP 18; TEMP 98.3; O2SAT 100
[2025-05-19 08:14] VITALS: BP 109/71; PULSE 71; RESP 16; TEMP 97.4; O2SAT 97
[2025-05-19 20:33] VITALS: BP 112/75; PULSE 79; RESP 19; TEMP 97.6; O2SAT 96
[2025-05-19] MEDS: MIRTAZAPINE 30 MG TABLET PO SCH (20:42)
[2025-05-20 08:54] VITALS: BP 117/64; PULSE 66; RESP 17; TEMP 97.5; O2SAT 97
[2025-05-20 20:30] VITALS: BP 103/66; PULSE 85; RESP 18; TEMP 97.6; O2SAT 99
[2025-05-21 08:27] VITALS: BP 124/88; PULSE 79; RESP 16; TEMP 97.7; O2SAT 98
[2025-05-21 20:48] VITALS: BP 139/82; PULSE 80; RESP 18; TEMP 98.1; O2SAT 99
[2025-05-22 08:51] VITALS: BP 100/67; PULSE 79; RESP 16; TEMP 98.2; O2SAT 97
[2025-05-22 21:11] VITALS: BP 128/81; PULSE 68; RESP 18; TEMP 98.6; O2SAT 97
[2025-05-23 08:34] VITALS: BP 108/69; PULSE 74; RESP 18; TEMP 98.1; O2SAT 95
[2025-05-23] MEDS: MAG HYDROX/ALUMINUM HYD/SIMETH ES 30 ML SUSPENSION UDCUP PO PRN (09:20)
[2025-05-23] MEDS: NICOTINE 21 MG/24 HOUR PATCH TD PRN (10:16)
[2025-05-23 20:31] VITALS: BP 120/84; PULSE 89; RESP 18; TEMP 97.7; O2SAT 100
[2025-05-23] MEDS: OLANZapine 10 MG RAPDIS TABLET PO SCH (20:37)
[2025-05-24 09:37] VITALS: BP 126/89; PULSE 85; RESP 18; TEMP 97.5; O2SAT 97
== END 2025-05-24 09:15 | disposition home or self-care (01) | DRG 761 ==
LOC: EMS 12:14 → B2S 14:12
PROVIDERS: ADMIT Psychiatry & Neurology Psychiatry; ATTEND Psychiatry & Neurology Psychiatry
PROC: GZHZZZZ Group Psychotherapy (ICD-10-PCS; principal; 2025-05-02)
PROC: GZ58ZZZ Individual Psychotherapy, Cognitive-Behavioral (ICD-10-PCS; 2025-05-02)
PROC: GZ56ZZZ Individual Psychotherapy, Supportive (ICD-10-PCS; 2025-05-03)
DX: F25.0 Schizoaffective disorder, bipolar type (principal); I11.0 Hypertensive heart disease with heart failure; I50.9 Heart failure, unspecified; G40.409 Other generalized epilepsy and epileptic syndromes, not intractable, without status epilepticus; R45.851 Suicidal ideations; E66.9 Obesity, unspecified; F41.9 Anxiety disorder, unspecified; F43.10 Post-traumatic stress disorder, unspecified; Z68.33 Body mass index [BMI] 33.0-33.9, adult; F15.90 Other stimulant use, unspecified, uncomplicated; F17.200 Nicotine dependence, unspecified, uncomplicated; F90.9 Attention-deficit hyperactivity disorder, unspecified type; G47.00 Insomnia, unspecified; J06.9 Acute upper respiratory infection, unspecified; J44.9 Chronic obstructive pulmonary disease, unspecified; Z60.8 Other problems related to social environment; Z20.822 Contact with and (suspected) exposure to COVID-19; Z55.9 Problems related to education and literacy, unspecified; Z59.00 Homelessness unspecified; Z63.9 Problem related to primary support group, unspecified; Z65.3 Problems related to other legal circumstances; Z85.028 Personal history of other malignant neoplasm of stomach; Z91.148 Patient's other noncompliance with medication regimen for other reason; Z91.51 Personal history of suicidal behavior; Z91.52 Personal history of nonsuicidal self-harm; Z91.030 Bee allergy status; Z88.6 Allergy status to analgesic agent; Z91.011 Allergy to milk products; Z79.899 Other long term (current) drug therapy; E87.6 Hypokalemia
CPT/HCPCS: 80048; 80061; 80164; 82962; 83036; 84439; 84443; 85025; 86592; 99285; G0480; Q0162

== ENCOUNTER 2025-05-06 14:52 | Emergency (ER) | payer MEDICAID ==
[~2025-05-06] VITALS: Ht 182.9 cm; Wt 115.9 kg
[2025-05-06 14:56] VITALS: BP 119/73; PULSE 73; RESP 18; TEMP 97.7; O2SAT 95
[2025-05-06 15:19] LABS: PLATELET COUNT (AUTO) 373 K/uL (150-450); RED BLOOD CELL COUNT(AUTO) 4.41 MIL/uL (4.50-5.90); RED CELL DISTRIBUTION WIDTH 13.4 % (11.5-14.5); WHITE BLOOD COUNT (AUTO) 7.3 K/uL (4.5-11.0)
[2025-05-06 15:27] LABS: CALCIUM, TOTAL 8.4 mg/dL (8.8-10.5); CREATININE 0.70 mg/dL (0.60-1.30); GLOMERULAR FILTR. RATE CALC > 60 mL/min (>60); GLUCOSE,RANDOM 167 mg/dL (70-110); SODIUM SERUM 139 mmol/L (136-145); UREA NITROGEN, BLOOD 8 mg/dL (7-18)
== END 2025-05-06 17:18 ==
LOC: EMS 14:52
DX: R53.83 Other fatigue (principal); R53.81 Other malaise; I10 Essential (primary) hypertension; F43.10 Post-traumatic stress disorder, unspecified; F17.210 Nicotine dependence, cigarettes, uncomplicated; F15.90 Other stimulant use, unspecified, uncomplicated; F12.90 Cannabis use, unspecified, uncomplicated; Z91.030 Bee allergy status; Z02.89 Encounter for other administrative examinations; Z85.028 Personal history of other malignant neoplasm of stomach; Z79.899 Other long term (current) drug therapy; Z98.890 Other specified postprocedural states; Z88.5 Allergy status to narcotic agent
CPT/HCPCS: 80048; 85025; 93005; 99284